=== PATIENT | male | born 1935 | race Caucasian/White ===

== ENCOUNTER → 2017-04-17 12:15 | Outpatient (CLI) | payer MEDICARE, BC, SELFPAY ==
--- NOTE | 2017-04-17 12:20 | ECHOD_ITS ---
Reason For Study: AV insufficiency Procedure This was a 2D Doppler, Color Flow transthoracic echocardiogram. The exam was of fair technical quality due to diminished acoustic windows. The study was technically difficult. Exam performed in department. Left Ventricle Severely dilated left ventricle. Severe segmental systolic dysfunction (see wall motion). The estimated ejection fraction is 25 %. Anterio-Basal: Hypokinetic. Posterior-Basal: Hypokinetic. Infero-Basal: Hypokinetic. Basal inferoseptal: Akinetic. Basal anteroseptal: Hypokinetic. Mid- Anterior : Severely Hypokinetic. Mid-Lateral : Severely Hypokinetic. Mid-Posterior: Severely Hypokinetic. Mid-Inferior: Akinetic. Mid-inferoseptal : Akinetic. Mid-anteroseptal : Akinetic. Anterior [place] : Not visualized. Inferior [place] : Not visualized. Lateral [place] : Hypokinetic. Septal [place] : Akinetic. Right Ventricle Normal RV size. Normal systolic function. Atria The left atrium is mildly enlarged. Normal right atrium. No doppler evidence for ASD. Mitral Valve There is no mitral annular calcification. Mild diffuse mitral valve thickening. Mild-Moderate (1- 2+) mitral valve insufficiency. Tricuspid Valve Normal tricuspid valve. Mild tricuspid valve insufficiency. Right ventricular systolic pressure estimated to be 40 mmHg. Aortic Valve Trisinus/trileaflet aortic valve. Mild diffuse aortic valve thickening. Moderate focal aortic valve calcification. Mild aortic stenosis. Trivial aortic valve insufficiency. Pulmonic Valve The pulmonic valve is not well visualized. Great Vessels Normal sized aortic root. Calcified aortic root. Pericardium/Pleural No pericardial effusion. MMode/2D Measurements & Calculations LVIDd: 6.5 cm IVSd: 1.3 cm LVOT diam: 2.1 cm LVIDs: 5.1 cm LVPWd: 1.2 cm LVOT area: 3.5 cm2 RVDd: 3.0 cm FS: 21.3 % Ao root diam: 3.4 cm LAV(MOD-bp): 68.0 ml LA A4 area: 18.8 cm2 LA dimension: 4.9 cm LAV(MOD-bp) Indexed: 34.1 ml/m2 LAV(MOD-sp2): 83.1 ml LAV(MOD-sp4): 53.0 ml MR PISA radius: 0.44 cm RA A4 area: 15.4 cm2 Doppler Measurements & Calculations MV E max berto: 105.1 cm/sec Lat Peak E' Berto: 3.4 cm/sec Med Peak E' Berto: 4.7 cm/sec MV A max berto: 97.7 cm/sec E/E' lat: 31.3 E/E' med: 22.3 MV E/A: 1.1 Ao V2 max: 210.1 cm/sec AI max berto: 431.3 cm/sec LV V1 max: 115.2 cm/sec Ao max P.7 mmHg AI max P.4 mmHg LV V1 max P.3 mmHg Ao V2 mean: 136.6 cm/sec AI dec slope: 192.9 cm/sec2 LV V1 mean P.6 mmHg Ao mean P.5 mmHg AI P1/2t: 654.7 msec LV V1 mean: 75.2 cm/sec Ao V2 VTI: 42.1 cm LV V1 VTI: 22.8 cm DOM(I,D): 1.9 cm2 DOM(V,D): 1.9 cm2 MR max berto: 536.8 cm/sec MR PISA: 1.2 cm2 SV(LVOT): 79.5 ml MR max P.3 mmHg MR mean berto: 390.0 cm/sec MR mean P.0 mmHg MR VTI: 227.6 cm PA V2 max: 105.4 cm/sec TR max berto: 302.3 cm/sec TR max P.6 mmHg Interpretation Summary The study was technically difficult. Severely dilated left ventricle. Severe segmental systolic dysfunction (see wall motion). The estimated ejection fraction is 25 %. The left atrium is mildly enlarged. Mild diffuse mitral valve thickening. Mild-Moderate (1-2+) mitral valve insufficiency. Mild tricuspid valve insufficiency. Mild aortic stenosis. Trivial aortic valve insufficiency. Calcified aortic root. Right ventricular systolic pressure estimated to be 40 mmHg. Transmitral diastolic flow velocities suggest diastolic dysfunction (pseudonormal pattern). Ordering Physician: ANGELO MCINTYRE Referring Physician: ANGELO MCINTYRE Performed By: Tamanna Hinojosa RDCS, RVT
== END ==
PROVIDERS: Family Provider Family Medicine; PCP Family Medicine; Visit Provider Family Medicine
DX: I08.0 Rheumatic disorders of both mitral and aortic valves (principal)
CPT/HCPCS: 93306

== ENCOUNTER → 2017-10-08 09:18 | Outpatient (CLI) | payer MEDICARE, BC, SELFPAY ==
--- NOTE | 2017-10-08 09:20 | ECHOD_ITS ---
Reason For Study: cardiomyopathy Procedure This was a 2D Doppler, Color Flow transthoracic echocardiogram. The exam was of adequate technical quality. Exam performed in department. Left Ventricle Severely dilated left ventricle. Apical false tendon noted. Severe segmental systolic dysfunction (see wall motion). The estimated ejection fraction is 20 %. There is evidence of diastolic dysfunction. Anterio-Basal: Hypokinetic. Lateral-Basal: Hypokinetic. Posterior-Basal: Hypokinetic. Infero-Basal: Hypokinetic. Basal inferoseptal: Akinetic. Basal anteroseptal: Hypokinetic. Mid- Anterior : Akinetic. Mid-Lateral : Hypokinetic. Mid-Posterior: Akinetic. Mid-Inferior: Akinetic. Mid-inferoseptal : Akinetic. Mid-anteroseptal : Akinetic. [place] : Akinetic. Right Ventricle Normal RV size. Normal systolic function. Atria The left atrium is moderately enlarged. No doppler evidence for ASD. Mitral Valve There is no mitral annular calcification. Mild diffuse mitral valve thickening. Moderate (2+) mitral valve insufficiency. Tricuspid Valve Normal tricuspid valve. Mild tricuspid valve insufficiency. Right ventricular systolic pressure estimated to be 39 mmHg. Aortic Valve Trisinus/trileaflet aortic valve. Mild diffuse aortic valve thickening. Moderate focal aortic valve calcification. Mild aortic stenosis. Mild (1+) aortic valve insufficiency. Pulmonic Valve The pulmonic valve is not well visualized. Great Vessels Normal sized aortic root. Pericardium/Pleural No pericardial effusion. MMode/2D Measurements & Calculations LVIDd: 6.7 cm IVSd: 1.3 cm LVOT diam: 2.1 cm LVIDs: 5.7 cm LVPWd: 1.3 cm LVOT area: 3.4 cm2 RVDd: 2.8 cm FS: 16.1 % Ao root diam: 3.5 cm LAV(MOD-bp): 95.3 ml LA A4 area: 26.8 cm2 LA dimension: 4.4 cm LAV(MOD-bp) Indexed: 47.7 ml/m2 LAV(MOD-sp2): 92.7 ml LAV(MOD-sp4): 92.1 ml RA A4 area: 13.8 cm2 Doppler Measurements & Calculations MV E max berto: 92.3 cm/sec Lat Peak E' Berto: 2.0 cm/sec Med Peak E' Berto: 4.1 cm/sec MV A max berto: 93.8 cm/sec E/E' lat: 45.6 E/E' med: 22.3 MV E/A: 0.98 Ao V2 max: 181.2 cm/sec AI max berto: 410.4 cm/sec LV V1 max: 95.0 cm/sec Ao max P.2 mmHg AI max P.5 mmHg LV V1 max P.6 mmHg Ao V2 mean: 118.7 cm/sec AI dec slope: 148.9 cm/sec2 LV V1 mean P.7 mmHg Ao mean P.3 mmHg AI P1/2t: 807.1 msec LV V1 mean: 62.3 cm/sec Ao V2 VTI: 34.8 cm LV V1 VTI: 18.9 cm DOM(I,D): 1.8 cm2 DOM(V,D): 1.8 cm2 SV(LVOT): 63.6 ml PA V2 max: 73.7 cm/sec TR max berto: 278.7 cm/sec TR max P.1 mmHg Interpretation Summary Severely dilated left ventricle. Severe segmental systolic dysfunction (see wall motion). The estimated ejection fraction is 20 %. Apical false tendon noted. The left atrium is moderately enlarged. Mild diffuse mitral valve thickening. Moderate (2+) mitral valve insufficiency. Mild tricuspid valve insufficiency. Mild aortic stenosis. Mild (1+) aortic valve insufficiency. Right ventricular systolic pressure estimated to be 39 mmHg. There is evidence of diastolic dysfunction. Ordering Physician: Mehrdad Casanova Referring Physician: Yair Moura Performed By: Tamanna Hinojosa, RDCS, RVT
== END ==
PROVIDERS: Family Provider Family Medicine; PCP Family Medicine; Visit Provider Internal Medicine Cardiovascular Disease
DX: I35.0 Nonrheumatic aortic (valve) stenosis (principal); I43 Cardiomyopathy in diseases classified elsewhere
CPT/HCPCS: 93306

== ENCOUNTER → 2018-08-29 15:57 | Outpatient (CLI) | payer MEDICARE, BC, SELFPAY ==
[2017-08-15 10:45] VITALS: BMI 27.4
== END ==
PROVIDERS: Family Provider Family Medicine; PCP Family Medicine; Referring Provider Otolaryngology; Visit Provider Otolaryngology
DX: J02.9 Acute pharyngitis, unspecified (principal)
CPT/HCPCS: 87070